=== PATIENT | male | born 1960 | race African-American/Black ===

== ENCOUNTER 2021-09-14 20:23 | Inpatient (IN) | payer OTHER ==
[~2021-09-14] VITALS: Ht 188 cm; Wt 112.0 kg
[2021-09-14 21:09] LABS: HEMATOCRIT 32.6 % (36.7-47.1); MEAN CORPUSCULAR HEMOGLOBIN 30.4 uug (23.8-33.4); MEAN CORPUSCULAR VOLUME 93.3 fL (73.0-96.2); PLATELET COUNT (AUTO) 222 K/uL (152-348)
[2021-09-14] MEDS ORDERED: POTA-194 PO (21:11)
[2021-09-14] MEDS ORDERED: METO-358 PO (21:11)
[2021-09-14] MEDS ORDERED: SERT-439 PO (21:11)
[2021-09-14] MEDS ORDERED: CEPH500T PO (21:11)
[2021-09-14] MEDS ORDERED: CYCL5TAB PO (21:11)
[2021-09-14] MEDS ORDERED: DIGO125T5 PO (21:11)
[2021-09-14] MEDS ORDERED: SPIR25TA6 PO (21:11)
[2021-09-14] MEDS ORDERED: APIX5TAB PO (21:11)
[2021-09-14] MEDS ORDERED: ROSU5TAB PO (21:11)
[2021-09-14] MEDS ORDERED: FERR325T28 PO (21:11)
[2021-09-14] MEDS ORDERED: GABA-532 PO (21:11)
[2021-09-14] MEDS ORDERED: BENA10TA74 PO (21:11)
[2021-09-14 21:20] LABS: CARBON DIOXIDE 30 mmol/L (21-32); CHLORIDE 102 mmol/L (98-107); CREATININE 0.7 mg/dL (0.6-1.3); GLUCOSE 108 mg/dL (74-106); POTASSIUM 3.5 mmol/L (3.5-5.1); UREA NITROGEN, BLOOD 16 mg/dL (7-18)
[2021-09-14] MEDS ORDERED: NITROGLYCERIN OINT 1 GM PACKET TP ONE ×2 (21:30→21:47)
[2021-09-14] MEDS ORDERED: FUROSEMIDE 40 MG/4 ML VIAL IV ONE (21:30)
[2021-09-14 21:33] LABS: ALANINE AMINOTRANSFERASE 27 U/L (16-63); ALKALINE PHOSPHATASE 118 U/L (50-136); ASPARTATE AMINOTRANSFERASE 19 U/L (15-37); BILIRUBIN,DIRECT 0.4 mg/dL (0.0-0.2); BILIRUBIN,TOTAL 0.7 mg/dL (0.2-1.0); TOTAL PROTEIN, SERUM 7.7 g/dL (6.4-8.2)
[2021-09-14] MEDS ORDERED: FUROSEMIDE 40 MG/4 ML VIAL ONE (21:47)
--- NOTE | 2021-09-14 21:50 | NUR ---
CESILIA made aware of current BP reading of 102/59. Gave the ok to administer lasix 80mg IV.
--- NOTE | 2021-09-14 22:40 | NUR ---
EPIC panel call placed. Awaiting call back from Dr. Garcia.
[2021-09-14] MEDS ORDERED: ONDANSETRON 4 MG/2 ML VIAL IV PRN (23:30)
[2021-09-14] MEDS ORDERED: MAGNESIUM HYDROXIDE 30 ML LIQUID UDC PO PRN (23:30)
[2021-09-14] MEDS ORDERED: REMEDY ESSENTIAL ZINC PASTE 113 GM TP PRN (23:30)
--- NOTE | 2021-09-15 00:30 | NUR ---
Report given to PANKAJ Davalos
[2021-09-15 02:18] LABS: *BILIRUBIN,URIN NEGATIVE (NEGATIVE); *BLOOD, URINE 3+ (NEGATIVE); *COLOR,URINE YELLOW (YELLOW); *KETONES,URINE NEGATIVE (NEGATIVE); LEUKOCYTE ESTERASE ,URINE NEGATIVE (NEGATIVE); NITRITE, URINE NEGATIVE (NEGATIVE); UGLUCOSE NEGATIVE (NEGATIVE)
--- NOTE | 2021-09-15 02:30 | NUR ---
Admitted a 60 years old male with Dx of Acute CHF. Patiently morbidly obese. AAOx4. On O2 at 3LPM via NC in place. O2 sat at 100% during admit. Midline on right upper arm intact and patent. Reinforce dressing. Salinas catheter Fr16 with 10cc balloon intact and draining via gravity. Routine admission care done. Plan of care initiated. Safety measure initiated and call light within reached.
[2021-09-15 02:46] LABS: *CLARITY,URINE HAZY (CLEAR)
[2021-09-15 02:48] LABS: BACTERIA,URINE NONE SEEN /HPF (NONE SEEN); RBC,URINE TNTC /HPF (0-3); SQUAMOUS EPITHELIAL CELL,UR NONE SEEN /HPF (NONE SEEN); WBC,URINE NONE SEEN /HPF (0-3); YEAST,URINE NONE SEEN /HPF (NONE SEEN)
--- NOTE | 2021-09-15 03:01 | NUR ---
Patient transported to TELE in stable condition.
[2021-09-15 03:18] VITALS: BP 106/83
[2021-09-15 05:46] LABS: HEMATOCRIT 33.4 % (36.7-47.1); MEAN CORPUSCULAR HEMOGLOBIN 30.3 uug (23.8-33.4); MEAN CORPUSCULAR VOLUME 93.9 fL (73.0-96.2); PLATELET COUNT (AUTO) 220 K/uL (152-348)
[2021-09-15] MEDS: PANTOPRAZOLE SODIUM 40 MG TABLET.DR PO SCH (06:06)
--- NOTE | 2021-09-15 06:14 | NUR ---
Patient slept well after admission. Denies any pain or SOB. Remains on O2 at 3LPM via NC. A fib on tele with PVC's. Salinas catheter intact and draining via gravity, with 300ml urine output. Needs assessed and attended to. Safety measure maintained and call light within reached.
--- NOTE | 2021-09-15 08:00 | NUR ---
AAWAKE ALERT AND VERBALLY RESPONSIVE, NO SS OF DISTRESS OR PAIN. REMAINS AFIB ON MONITOR
[2021-09-15 08:33] LABS: CARBON DIOXIDE 31 mmol/L (21-32); CHLORIDE 104 mmol/L (98-107); CREATININE 0.7 mg/dL (0.6-1.3); GLUCOSE 96 mg/dL (74-106); MAGNESIUM 2.1 mg/dL (1.8-2.4); PHOSPHOROUS 3.4 mg/dL (2.5-4.9); POTASSIUM 3.6 mmol/L (3.5-5.1); UREA NITROGEN, BLOOD 15 mg/dL (7-18)
[2021-09-15] MEDS ORDERED: FUROSEMIDE 40 MG/4 ML VIAL IV SCH (09:00)
[2021-09-15 09:27] LABS: THYROID STIMULATING HORMONE 1.149 mIU/mL (0.358-3.740)
[2021-09-15] MEDS: DIGOXIN 125 MCG TABLET PO SCH (09:42)
[2021-09-15] MEDS: APIXABAN 5 MG TABLET PO SCH ×2 (09:43→20:29)
--- NOTE | 2021-09-15 10:30 | NUR ---
SEEN BY DR FERGUSON FOR CARDIO FOLLOW-UP SEE NOTES
--- NOTE | 2021-09-15 10:53 | NUR ---
WOUND CARE CONSULT: PT RESTING AT THIS TIME. REVIEWED CHART, NURSING DOCUMENTATION AND PHOTOS WHICH INDICATE MOISTURE ASSOCIATED SKIN DAMAGE OVER PREVIOUS SCARRING ON SACRUM/BUTTOCKS, AND THIGHS, PRESENT ON ADMISSION. PT ALSO NOTED TO HAVE PROFOUND EDEMA TO LOWER EXTREMITIES. RECOMMENDATIONS MADE FOR SKIN PROTECTION. DISCUSSED WITH NURSING STAFF. [facility] E[facility] AIR BED IS ON ORDER. MD IN AGREEMENT WITH PLAN OF CARE.
[2021-09-15 11:29] VITALS: BP 119/80
--- NOTE | 2021-09-15 14:39 | NUR ---
NO ACUTE CHANGE FRO9M MORNING ASSESSMENT, CONTINUE WIT TELE ORDERED
[2021-09-15] MEDS ORDERED: METO100T14 PO (15:52)
[2021-09-15] MEDS ORDERED: FURO40TA5 PO (15:55)
[2021-09-15] MEDS: FUROSEMIDE 40 MG/4 ML VIAL IV SCH ×2 (16:25→23:04)
[2021-09-15 17:15] VITALS: BP 112/85
--- NOTE | 2021-09-15 19:07 | NUR ---
PATIENT REFUSED BARIATRIC BED
--- NOTE | 2021-09-15 20:00 | NUR ---
Received patient lying in bed. AAOx4. In no apparent distress. Denies any pain. Complain of mild SOB but tolerable per pt. On O2 at 3LPM via NC in place. O2 sat at 98% at this time. Midline on right upper arm intact and patent. Needs assessed and attended to. Safety measure initiated and call light within reached.
[2021-09-15 20:40] VITALS: BP 106/80
--- NOTE | 2021-09-15 21:03 | NUR ---
Controlled A. fib with PVC's on tele, HR of 100/min.
[2021-09-16 00:30] VITALS: BP 103/60
[2021-09-16 04:50] VITALS: BP 105/48
[2021-09-16] MEDS: PANTOPRAZOLE SODIUM 40 MG TABLET.DR PO SCH (06:07)
--- NOTE | 2021-09-16 06:26 | NUR ---
Patient slept well last night. Denies any pain or SOB. O2 at 3LPM via NC. Controlled A. fib with PVC's on tele with HR of 97/min. Salinas catheter intact and draining via gravity. Needs attended to and met. Safety measure maintained and call light within reached.
[2021-09-16 06:48] LABS: HEMATOCRIT 30.5 % (36.7-47.1); MEAN CORPUSCULAR HEMOGLOBIN 30.6 uug (23.8-33.4); MEAN CORPUSCULAR VOLUME 94.3 fL (73.0-96.2); PLATELET COUNT (AUTO) 213 K/uL (152-348)
[2021-09-16 07:20] LABS: CARBON DIOXIDE 35 mmol/L (21-32); CHLORIDE 102 mmol/L (98-107); CREATININE 0.7 mg/dL (0.6-1.3); GLUCOSE 96 mg/dL (74-106); MAGNESIUM 1.9 mg/dL (1.8-2.4); PHOSPHOROUS 3.1 mg/dL (2.5-4.9); POTASSIUM 3.1 mmol/L (3.5-5.1); UREA NITROGEN, BLOOD 17 mg/dL (7-18)
--- NOTE | 2021-09-16 08:00 | NUR ---
AWAKE ALERT AND ORIENTED X3 WITH O2 AT 3L NC SATURATING 95% DENIES PAIN/DISTRESS. AFIB ON MONITOR CONTINUE TELE OBSERVATION ORDERED
[2021-09-16] MEDS ORDERED: POTASSIUM CHLORIDE 20 MEQ POWDER PACKET GT ONE (08:15)
[2021-09-16] MEDS: DIGOXIN 125 MCG TABLET PO SCH (08:48)
[2021-09-16] MEDS: MAGNESIUM SULFATE/D5W 100 ML IV SCH ×2 (08:48→09:39)
[2021-09-16] MEDS: FUROSEMIDE 40 MG/4 ML VIAL IV SCH ×3 (08:48→23:34)
[2021-09-16] MEDS: APIXABAN 5 MG TABLET PO SCH ×2 (08:49→20:23)
[2021-09-16] MEDS: POTASSIUM CHLORIDE 50 ML IV SCH ×4 (10:32→14:54)
--- NOTE | 2021-09-16 11:00 | NUR ---
SEEN BY DR WHITE AND DR FERGUSON, REVIEWED LABS AND REPLACED K & MG. DENIES PAIN BUT SLIGHT SOB ON EXERTION. CONTROLLED AFIB ON MONITOR
[2021-09-16 11:12] VITALS: BP 131/98
--- NOTE | 2021-09-16 14:20 | NUR ---
TOLERATING POTASSIUM IV VERY WELL FOR REPLACEMENT. REMAINS AFIB ON MONITOR CONTROLLED/UNCONTROLLED. DENIES SOB AND CHEST PAIN
[2021-09-16 15:58] VITALS: BP 107/86
--- NOTE | 2021-09-16 19:45 | NUR ---
Received patient lying in bed watching TV. AAOx4. Able to make needs known. On 3L O2 via NC, saturating at 93%, increased to 4L O2, saturating well. A-fib on telemonitor. WARREN midline patent and intact. Patient denies SOB, chest pain or dizziness. Requesting for liquids, taught patient importance of strict intake and output d/t his current condition. Safety precautions initiated. Bed in locked position, bed alarm activated, call light button within reach. Will continue to monitor.
[2021-09-16] MEDS: ACETAMINOPHEN 325 MG TABLET PO PRN (20:22)
[2021-09-16 20:29] VITALS: BP 114/79
[2021-09-17 04:00] VITALS: BP 108/57
[2021-09-17] MEDS: PANTOPRAZOLE SODIUM 40 MG TABLET.DR PO SCH (06:00)
--- NOTE | 2021-09-17 06:06 | NUR ---
Patient slept through the night. No acute distress noted at this time. Controlled A-fib on tele monitor. 1L O2 via NC, saturating at 97%. IV access on WARREN midline, patent and intact. Salinas cath, draining enio colored urine. Compliant with medications. Safety precautions maintained. Will endorse to day shift.
[2021-09-17 06:39] LABS: HEMATOCRIT 31.8 % (36.7-47.1); MEAN CORPUSCULAR HEMOGLOBIN 30.1 uug (23.8-33.4); PLATELET COUNT (AUTO) 214 K/uL (152-348)
[2021-09-17 07:12] LABS: CARBON DIOXIDE 34 mmol/L (21-32); CHLORIDE 103 mmol/L (98-107); CREATININE 0.6 mg/dL (0.6-1.3); GLUCOSE 90 mg/dL (74-106); MAGNESIUM 2.1 mg/dL (1.8-2.4); POTASSIUM 3.2 mmol/L (3.5-5.1); UREA NITROGEN, BLOOD 14 mg/dL (7-18)
--- NOTE | 2021-09-17 07:30 | NUR ---
Received patient in bed awake alert and oriented times 4. No sign of distress noted at this time. Patient is currently on 1 L of oxygen NC. Safety precautions are in place. Will continue to monitor.
[2021-09-17] MEDS ORDERED: POTASSIUM CHLORIDE 20 MEQ POWDER PACKET PO ONE ×2 (08:30→17:00)
[2021-09-17] MEDS: SPIRONOLACTONE 25 MG TABLET PO SCH (08:53)
[2021-09-17] MEDS: POTASSIUM CHLORIDE 50 ML IV SCH ×4 (08:53→14:45)
[2021-09-17] MEDS: DIGOXIN 125 MCG TABLET PO SCH (08:53)
[2021-09-17] MEDS: APIXABAN 5 MG TABLET PO SCH ×2 (08:53→20:57)
[2021-09-17 15:42] VITALS: BP 161/84
[2021-09-17] MEDS: FUROSEMIDE 40 MG/4 ML VIAL IV SCH ×2 (16:32→23:40)
--- NOTE | 2021-09-17 18:26 | NUR ---
Patient left resting in bed. No sign of distress noted. All medication given as ordered. Fluid restrictions are in place. Safety measure implemented. Will endorse care to the oncoming nurse.
--- NOTE | 2021-09-17 20:00 | NUR ---
Patient in bed, with HOB up. AAO x4, able to make needs known. On 1L 02 via NC, still noted with exertional SOB, no coughing. Patient is MAX 2 person assist, noted with some left sided weakness when assisted with hygiene. Right upper arm midline in place, patent and intact. +4 pitting edema noted to both legs, from top of thighs down to feet. On telemetry, AFIB, at 110-120's BPM. Safety measures initiated, call light within reach.
--- NOTE | 2021-09-18 | NUR ---
RECD PT IN BED, HOB UP AND QUIETLY RESTING. NO ACUTE DISTRESS NOTED, NEEDS ATTENDED TO,ALERT/ORIENTED X4, NO VOICED COMPLAINTS.ON TELE AFIB,HR 97.FAM CATH INTACT AND PATENT.
[2021-09-18 00:26] VITALS: BP 130/99
[2021-09-18 04:00] VITALS: BP 131/80
--- NOTE | 2021-09-18 06:02 | NUR ---
Patient still noted with SOB, on 1L 02 via NC, 02 sats 94%. On telemetry, remains in AFIB at 118BPM at this time. Patient requesting many fluids this shift, Urine output is good, clear yellow urine noted to muniz catheter. No significant events noted. Dressing intact to sacral MASD. 2 person MAX assist provided for ADL's and hygiene. Call light within reach.
[2021-09-18] MEDS: PANTOPRAZOLE SODIUM 40 MG TABLET.DR PO SCH (06:20)
[2021-09-18 06:50] LABS: HEMATOCRIT 31.6 % (36.7-47.1); MEAN CORPUSCULAR HEMOGLOBIN 30.7 uug (23.8-33.4); MEAN CORPUSCULAR VOLUME 92.9 fL (73.0-96.2); PLATELET COUNT (AUTO) 230 K/uL (152-348)
[2021-09-18 07:27] LABS: CARBON DIOXIDE 32 mmol/L (21-32); CHLORIDE 102 mmol/L (98-107); CREATININE 0.7 mg/dL (0.6-1.3); GLUCOSE 96 mg/dL (74-106); MAGNESIUM 2.2 mg/dL (1.8-2.4); PHOSPHOROUS 2.7 mg/dL (2.5-4.9); POTASSIUM 3.4 mmol/L (3.5-5.1); UREA NITROGEN, BLOOD 11 mg/dL (7-18)
[2021-09-18] MEDS ORDERED: POTASSIUM CHLORIDE 20 MEQ POWDER PACKET PO ONE (09:00)
[2021-09-18] MEDS: FUROSEMIDE 40 MG/4 ML VIAL IV SCH ×2 (09:03→16:53)
[2021-09-18] MEDS: DIGOXIN 125 MCG TABLET PO SCH (09:05)
[2021-09-18] MEDS: SPIRONOLACTONE 25 MG TABLET PO SCH (09:06)
[2021-09-18] MEDS: POTASSIUM CHLORIDE 50 ML IV SCH ×4 (09:06→13:34)
[2021-09-18] MEDS: APIXABAN 5 MG TABLET PO SCH ×2 (09:08→21:53)
[2021-09-18] MEDS: LOSARTAN POTASSIUM 25 MG TABLET PO SCH (09:13)
[2021-09-18 11:59] VITALS: BP 123/84
--- NOTE | 2021-09-18 15:56 | NUR ---
Pt is a/o x 4 presenting with atrial fibrillation on telemetry HR 112, on 1L NC saturating 97%. pt has had 4 bags of potassium chloride, he is on strict intake and output. pt verbalizes understanding of limiting fluid intake. he has had 2,550 cc urine output thus far. Pt continues to have shortness of breath. Head of bed elevate, comfort measures provided, call light within reach. Will continue to monitor.
[2021-09-18 16:07] VITALS: BP 122/76
[2021-09-18 20:19] VITALS: BP 118/79
--- NOTE | 2021-09-19 | NUR ---
HS CARE DONE,REPOSITIONED FOR COMFORT,OXYGEN INHALATION 1L/MIN VIA NASAL CANNULA.STRICT INTAKE AND OUTPUT MEASURED AND RECORDED.SLEPT AT LONG INTERVALS.
[2021-09-19 00:10] VITALS: BP 130/79
[2021-09-19 04:30] VITALS: BP 123/63
[2021-09-19 05:43] LABS: HEMATOCRIT 31.9 % (36.7-47.1); MEAN CORPUSCULAR HEMOGLOBIN 30.4 uug (23.8-33.4); MEAN CORPUSCULAR VOLUME 92.8 fL (73.0-96.2); PLATELET COUNT (AUTO) 224 K/uL (152-348)
[2021-09-19 05:55] LABS: CARBON DIOXIDE 31 mmol/L (21-32); CHLORIDE 102 mmol/L (98-107); CREATININE 0.7 mg/dL (0.6-1.3); GLUCOSE 96 mg/dL (74-106); MAGNESIUM 2.2 mg/dL (1.8-2.4); PHOSPHOROUS 3.1 mg/dL (2.5-4.9); POTASSIUM 3.4 mmol/L (3.5-5.1); UREA NITROGEN, BLOOD 11 mg/dL (7-18)
[2021-09-19] MEDS: PANTOPRAZOLE SODIUM 40 MG TABLET.DR PO SCH (06:30)
[2021-09-19] MEDS: FUROSEMIDE 40 MG/4 ML VIAL IV SCH ×3 (07:31→16:28)
--- NOTE | 2021-09-19 07:33 | NUR ---
ENDORSED TO AM NURSE IN APPARENTLY FAIR CONDITION,INSTRUCED ON THE IMPORTANCE OF DIURETICS IN RELATION TO HIS ILLNESS.BED BREAK NOT WORKING, WOUL BENEFIT USING BARIATRIC BED, MEPILEX ON SACRACRAL SORE IN PLACE AND INTACT.
--- NOTE | 2021-09-19 08:00 | NUR ---
Discuss plan with [employer]OR [employer] and patient re not drinking too much water. pt agreeable with plan of care. strict I/O.
[2021-09-19] MEDS ORDERED: POTASSIUM CHLORIDE 20 MEQ POWDER PACKET PO ONE (08:30)
[2021-09-19] MEDS: APIXABAN 5 MG TABLET PO SCH ×2 (10:06→20:19)
[2021-09-19] MEDS: SPIRONOLACTONE 25 MG TABLET PO SCH (10:06)
[2021-09-19] MEDS: DIGOXIN 125 MCG TABLET PO SCH (10:10)
[2021-09-19] MEDS: LOSARTAN POTASSIUM 25 MG TABLET PO SCH (10:10)
[2021-09-19] MEDS: POTASSIUM CHLORIDE 50 ML IV SCH ×2 (10:16→13:00)
[2021-09-19 12:20] VITALS: BP 113/63
[2021-09-19 16:03] VITALS: BP 110/89
[2021-09-19 20:18] VITALS: BP 118/78
--- NOTE | 2021-09-19 20:35 | NUR ---
Received patient lying in bed watching TV. AAOx4. Able to make needs known. On 1L O2 via NC, saturating at 94%. Head of bed elevated. Controlled A-fib on telemonitor. WARREN midline patent and intact. Patient denies SOB, chest pain or dizziness. Continuously requesting for liquids, taught patient importance of strict intake and output d/t his current condition. Safety precautions initiated. Bed in locked position, bed alarm activated, call light button within reach. Will continue to monitor.
[2021-09-20] MEDS: FUROSEMIDE 40 MG/4 ML VIAL IV SCH ×4 (00:13→23:46)
[2021-09-20 00:21] VITALS: BP 136/72
[2021-09-20 04:21] VITALS: BP 107/65
--- NOTE | 2021-09-20 05:18 | NUR ---
Patient slept intermittently through the night. Patient denies SOB, chest pain or dizziness. Controlled A-fib on tele monitor. On 1L O2, saturating at 96%. IV access patent and intact. With muniz catheter, intact, draining clear yellow urine. Wound care done. Repositioned pt frequently. Compliant with medication regimen. All needs attended to and met. Safety precautions maintained. Will endorse to day shift.
[2021-09-20] MEDS: PANTOPRAZOLE SODIUM 40 MG TABLET.DR PO SCH (06:19)
[2021-09-20 06:52] LABS: HEMATOCRIT 31.6 % (36.7-47.1); MEAN CORPUSCULAR HEMOGLOBIN 30.3 uug (23.8-33.4); MEAN CORPUSCULAR VOLUME 93.1 fL (73.0-96.2); PLATELET COUNT (AUTO) 249 K/uL (152-348)
[2021-09-20 07:11] LABS: CARBON DIOXIDE 30 mmol/L (21-32); CHLORIDE 101 mmol/L (98-107); CREATININE 0.6 mg/dL (0.6-1.3); GLUCOSE 97 mg/dL (74-106); MAGNESIUM 1.9 mg/dL (1.8-2.4); PHOSPHOROUS 2.8 mg/dL (2.5-4.9); POTASSIUM 3.1 mmol/L (3.5-5.1); UREA NITROGEN, BLOOD 9 mg/dL (7-18)
--- NOTE | 2021-09-20 08:00 | NUR ---
Discussed with patient fluid restrictions and not to drink too much water as pt is being diurese with lasix. Pt agreeable with plan and agrees to only have ice chips. JOSELIN LE+ 2. F/c draining light yellow urine with sediments. Pt agreeable with using the bariatric bed. Frequent turn q2 hrs implemented. PT denies any c/o pain.
[2021-09-20] MEDS ORDERED: POTASSIUM CHLORIDE 20 MEQ TAB.PRT.SR PO ONE (09:00)
[2021-09-20] MEDS ORDERED: POTASSIUM CHLORIDE 20 MEQ POWDER PACKET GT ONE (09:00)
[2021-09-20] MEDS: POTASSIUM CHLORIDE 50 ML IV SCH ×4 (09:36→15:06)
[2021-09-20] MEDS: SPIRONOLACTONE 25 MG TABLET PO SCH (09:37)
[2021-09-20] MEDS: APIXABAN 5 MG TABLET PO SCH ×2 (09:39→21:28)
[2021-09-20] MEDS: DIGOXIN 125 MCG TABLET PO SCH (09:39)
[2021-09-20] MEDS: LOSARTAN POTASSIUM 25 MG TABLET PO SCH (09:40)
[2021-09-20 12:00] VITALS: BP 108/65
[2021-09-20 16:00] VITALS: BP 103/69
--- NOTE | 2021-09-20 18:13 | NUR ---
PT is in no acute distress. Call light is within reach.
[2021-09-20 20:00] VITALS: BP 113/47
--- NOTE | 2021-09-20 20:00 | NUR ---
Received patient lying in bed. AAOX4. In no apparent distress. On O2 at 1LPM via NC. Denies any pain. A.fib controlled on tele with HR of 92/min. Midline on right upper arm intact and patent. Salinas catheter intact and draining via gravity. Needs assessed and attended to. Safety measure initiated and call light within reached.
[2021-09-20] MEDS ORDERED: Medication Not On Formulary EA (Rosuvastatin Calcium (Crestor) 5 MG) PO SCH (21:00)
[2021-09-20] MEDS ORDERED: METOPROLOL TARTRATE 50 MG TABLET PO SCH (21:00)
[2021-09-20] MEDS ORDERED: Medication Not On Formulary EA (Cyclobenzaprine Hcl 5 MG) PO SCH (21:00)
[2021-09-20] MEDS: ATORVASTATIN 10 MG TABLET PO SCH (21:28)
[2021-09-20] MEDS: CYCLOBENZAPRINE HCL 10 MG TABLET PO SCH (21:28)
[2021-09-20] MEDS: SERTRALINE HCL 50 MG TABLET PO SCH (21:28)
--- NOTE | 2021-09-20 22:00 | NUR ---
Patient transferred to [facility].
[2021-09-21] VITALS: BP 107/57
[2021-09-21 05:13] VITALS: BP 98/60
[2021-09-21] MEDS: PANTOPRAZOLE SODIUM 40 MG TABLET.DR PO SCH (06:08)
--- NOTE | 2021-09-21 06:10 | NUR ---
Patient slept well last night. Denies any pain or SOB. O2 at 1LPM via NC. Controlled A. fib controlled on tele with HR of 77/min. Salinas catheter intact and draining via gravity. Needs attended to and met. Safety measure maintained and call light within reached.
[2021-09-21] MEDS ORDERED: BENAZEPRIL HCL 10 MG TABLET PO SCH (09:00)
[2021-09-21] MEDS ORDERED: APIXABAN 5 MG TABLET PO SCH (09:00)
[2021-09-21] MEDS ORDERED: METOPROLOL TARTRATE 50 MG TABLET PO SCH (09:00)
[2021-09-21] MEDS ORDERED: METOPROLOL SUCCINATE XL 25 MG TAB.SR.24H PO SCH (09:00)
[2021-09-21] MEDS ORDERED: Medication Not On Formulary EA (Metoprolol Tartrate (Lopressor) 100 MG) PO SCH (09:00)
[2021-09-21] MEDS ORDERED: DIGOXIN 125 MCG TABLET PO SCH (09:00)
[2021-09-21] MEDS ORDERED: BUMETANIDE 1 MG TABLET PO SCH (09:00)
[2021-09-21] MEDS ORDERED: BENAZEPRIL HCL 20 MG TABLET PO SCH (09:00)
[2021-09-21] MEDS: APIXABAN 5 MG TABLET PO SCH ×2 (09:41→20:48)
[2021-09-21] MEDS: GABAPENTIN 100 MG CAPSULE PO SCH ×3 (09:42→16:52)
[2021-09-21] MEDS: DIGOXIN 125 MCG TABLET PO SCH (09:47)
[2021-09-21] MEDS: FERROUS SULFATE 325 MG TABEC PO SCH (09:48)
[2021-09-21] MEDS: SPIRONOLACTONE 25 MG TABLET PO SCH (09:48)
[2021-09-21] MEDS: BUMETANIDE 1 MG TABLET PO SCH (09:54)
[2021-09-21] MEDS: METOPROLOL TARTRATE 25 MG TABLET PO SCH ×2 (09:54→20:49)
[2021-09-21 12:00] VITALS: BP 111/48
--- NOTE | 2021-09-21 15:10 | NUR ---
Received patient awake in his room. A/O X 3 to person, place. Pt. is calm and cooperative with care. Pt. is on 1 liter oxygen with saturation between 96% to 99%. Patient is incontinent with muniz catheter. Requires more than minimal assistance with ADL. Compliant with medications. Fall and safety precautions implemented.
[2021-09-21 16:00] VITALS: BP 100/41
[2021-09-21 20:40] VITALS: BP 97/64
[2021-09-21] MEDS: CYCLOBENZAPRINE HCL 10 MG TABLET PO SCH (20:48)
[2021-09-21] MEDS: ATORVASTATIN 10 MG TABLET PO SCH (20:48)
[2021-09-21] MEDS: SERTRALINE HCL 50 MG TABLET PO SCH (20:48)
[2021-09-22 00:25] VITALS: BP 99/47
[2021-09-22 04:22] VITALS: BP 94/43
[2021-09-22] MEDS: PANTOPRAZOLE SODIUM 40 MG TABLET.DR PO SCH (06:10)
[2021-09-22 06:27] LABS: HEMATOCRIT 30.2 % (36.7-47.1); MEAN CORPUSCULAR HEMOGLOBIN 30.9 uug (23.8-33.4); MEAN CORPUSCULAR VOLUME 94.2 fL (73.0-96.2); PLATELET COUNT (AUTO) 259 K/uL (152-348)
[2021-09-22 06:51] LABS: ALANINE AMINOTRANSFERASE 18 U/L (16-63); ALKALINE PHOSPHATASE 106 U/L (50-136); ASPARTATE AMINOTRANSFERASE 10 U/L (15-37); BILIRUBIN,TOTAL 0.5 mg/dL (0.2-1.0); CARBON DIOXIDE 31 mmol/L (21-32); CHLORIDE 103 mmol/L (98-107); CHOLESTEROL 105 mg/dL (<200); CREATININE 0.7 mg/dL (0.6-1.3); GLUCOSE 96 mg/dL (74-106); HDL CHOLESTEROL 29 mg/dL (40-60); MAGNESIUM 1.9 mg/dL (1.8-2.4); PHOSPHOROUS 3.7 mg/dL (2.5-4.9); POTASSIUM 3.4 mmol/L (3.5-5.1); TRIGLYCERIDES 70 MG/DL (30-150); UREA NITROGEN, BLOOD 10 mg/dL (7-18)
[2021-09-22] MEDS ORDERED: POTASSIUM CHLORIDE 20 MEQ TAB.PRT.SR PO ONE (09:15)
[2021-09-22] MEDS: FERROUS SULFATE 325 MG TABEC PO SCH (09:16)
[2021-09-22] MEDS: BUMETANIDE 1 MG TABLET PO SCH (09:16)
[2021-09-22] MEDS: GABAPENTIN 100 MG CAPSULE PO SCH ×3 (09:16→16:56)
[2021-09-22] MEDS: SPIRONOLACTONE 25 MG TABLET PO SCH (09:16)
[2021-09-22] MEDS: APIXABAN 5 MG TABLET PO SCH ×2 (09:17→20:11)
[2021-09-22] MEDS: DIGOXIN 125 MCG TABLET PO SCH (09:18)
--- NOTE | 2021-09-22 09:24 | NUR ---
rhett held bp 92/47
[2021-09-22 12:00] VITALS: BP 92/55
--- NOTE | 2021-09-22 12:16 | NUR ---
received call from osvaldo who was very upset and raising her voice, per " i am frustrated, i need to talk to someone her facility never told me he was with you guys." Per osvaldo i need to talk to the doctor, message was sent to Dr. Talavera per MD he will call .
[2021-09-22 16:00] VITALS: BP 100/73
--- NOTE | 2021-09-22 19:40 | NUR ---
Received pt lying in bed, watching tv. AO x 4. On 1L NC saturating at 96%. On MAXXAIR mattress. WARREN midline intact and patent. Pt requested crackers, gave crackers. Educated pt on strict I & O. Will continue to monitor I & O. No signs of acute distress. Call lights within reach. Safety measures initiated.
[2021-09-22] MEDS: CYCLOBENZAPRINE HCL 10 MG TABLET PO SCH (20:10)
[2021-09-22] MEDS: ATORVASTATIN 10 MG TABLET PO SCH (20:11)
[2021-09-22] MEDS: SERTRALINE HCL 50 MG TABLET PO SCH (20:12)
[2021-09-22 20:22] VITALS: BP 110/66
[2021-09-23] VITALS: BP 106/54
[2021-09-23 04:00] VITALS: BP 135/42
[2021-09-23] MEDS: PANTOPRAZOLE SODIUM 40 MG TABLET.DR PO SCH (06:23)
--- NOTE | 2021-09-23 06:38 | NUR ---
Patient slept through the night. On 1L NC saturating 98%. WARREN midline intact. Controlled A fib on tele monitor, HR 95-115 bpm. No signs of acute distress. Strict I&O. F/C intact draining, enio tea colored urine. Bilateral lower extremities kept offloading. Dry skin, skin intact and moisturized. No complaints at this time. Compliant with medications. Safety measures maintained. Call lights within reach. Will endorse to am shift.
[2021-09-23] MEDS: BUMETANIDE 1 MG TABLET PO SCH (08:05)
[2021-09-23] MEDS: FERROUS SULFATE 325 MG TABEC PO SCH (08:05)
[2021-09-23] MEDS: SPIRONOLACTONE 25 MG TABLET PO SCH (08:06)
[2021-09-23] MEDS: APIXABAN 5 MG TABLET PO SCH ×2 (08:06→20:07)
[2021-09-23] MEDS: DIGOXIN 125 MCG TABLET PO SCH (08:06)
[2021-09-23] MEDS: GABAPENTIN 100 MG CAPSULE PO SCH ×3 (08:07→17:06)
[2021-09-23 11:07] VITALS: BP 103/50
[2021-09-23 15:08] VITALS: BP 98/53
--- NOTE | 2021-09-23 19:30 | NUR ---
Received pt lying in MAXXAIR mattress. On 1L NC saturating at 97%. AO X 4. Very pleasant, able to make needs known. WARREN midline intact and patent. F/C intact. No signs of acute distress noted. No complaints at this time. Strict I & O. Call lights within reach. Belongs by bedside. Safety measures initiated.
[2021-09-23 20:00] VITALS: BP 106/61
[2021-09-23] MEDS: SERTRALINE HCL 50 MG TABLET PO SCH (20:01)
[2021-09-23] MEDS: ATORVASTATIN 10 MG TABLET PO SCH (20:01)
[2021-09-23] MEDS: CYCLOBENZAPRINE HCL 10 MG TABLET PO SCH (20:02)
[2021-09-24] VITALS: BP 112/58
[2021-09-24 04:00] VITALS: BP 108/75
--- NOTE | 2021-09-24 05:52 | NUR ---
Pt slept comfortably through the night. On 1L NC saturating at 97%. Compliant with medication and care. WARREN midline intact. F/C intact and patent. All needs have been met. No signs of acute distress or complaints. Call lights within reach. Safety measures maintained. Will endorse to am shift
[2021-09-24 06:36] LABS: HEMATOCRIT 30.4 % (36.7-47.1); MEAN CORPUSCULAR HEMOGLOBIN 30.3 uug (23.8-33.4); MEAN CORPUSCULAR VOLUME 92.1 fL (73.0-96.2); PLATELET COUNT (AUTO) 249 K/uL (152-348)
[2021-09-24] MEDS: PANTOPRAZOLE SODIUM 40 MG TABLET.DR PO SCH (06:36)
[2021-09-24 07:05] LABS: CREATININE 0.8 mg/dL (0.6-1.3); MAGNESIUM 1.8 mg/dL (1.8-2.4); PHOSPHOROUS 3.3 mg/dL (2.5-4.9); POTASSIUM 3.3 mmol/L (3.5-5.1)
--- NOTE | 2021-09-24 08:00 | NUR ---
RECEIVED PATIENT IN BED AWAKE ALERT AND ORIENTED X3 . ON 1L ON NC SATURATING 96% no ss of distress. dr childers in AND CHANGE STATUS TO MED/SURG. LOW K 3.3 REPLACED
[2021-09-24] MEDS: BUMETANIDE 1 MG TABLET PO SCH (08:52)
[2021-09-24] MEDS: DIGOXIN 125 MCG TABLET PO SCH (08:53)
[2021-09-24] MEDS: ACETAMINOPHEN 325 MG TABLET PO PRN (08:54)
[2021-09-24] MEDS: APIXABAN 5 MG TABLET PO SCH (08:54)
[2021-09-24] MEDS: FERROUS SULFATE 325 MG TABEC PO SCH (08:54)
[2021-09-24] MEDS: GABAPENTIN 100 MG CAPSULE PO SCH ×2 (08:54→13:20)
[2021-09-24] MEDS: SPIRONOLACTONE 25 MG TABLET PO SCH (08:54)
[2021-09-24] MEDS ORDERED: POTASSIUM CHLORIDE 20 MEQ POWDER PACKET PO ONE (09:30)
[2021-09-24] MEDS ORDERED: SPIRONOLACTONE 25 MG TABLET PO SCH (09:30)
[2021-09-24 11:59] VITALS: BP 124/73
[2021-09-24] MEDS ORDERED: ACET325T53 PO (16:29)
[2021-09-24] MEDS ORDERED: POTA20PA40 PO (16:29)
[2021-09-24] MEDS ORDERED: METO25TA6 PO (16:29)
[2021-09-24] MEDS ORDERED: MULT-594 PO (16:29)
[2021-09-24] MEDS ORDERED: APIX5TAB PO (16:29)
[2021-09-24] MEDS ORDERED: MAGN400O6 PO (16:29)
[2021-09-24] MEDS ORDERED: BUME1TAB8 PO (16:29)
--- NOTE | 2021-09-24 17:09 | NUR ---
transferred to [facility]. report given to nurse. meds faxed over. in no acute distress vss sat 97% on 1l
== END 2021-09-24 15:20 | DRG 194 ==
LOC: ER 20:27 → TELE3 23:59 → MEDSURG3 09-24 08:50
PROVIDERS: ADMIT Student in an Organized Health Care Education/Training Program; ATTEND Internal Medicine
DX: I11.0 Hypertensive heart disease with heart failure (principal); J96.01 Acute respiratory failure with hypoxia; E44.0 Moderate protein-calorie malnutrition; I27.20 Pulmonary hypertension, unspecified; D68.59 Other primary thrombophilia; I31.3 Pericardial effusion (noninflammatory); I48.20 Chronic atrial fibrillation, unspecified; D64.9 Anemia, unspecified; E66.01 Morbid (severe) obesity due to excess calories; Z79.01 Long term (current) use of anticoagulants; E66.9 Obesity, unspecified; E87.6 Hypokalemia; E78.5 Hyperlipidemia, unspecified; Z86.73 Personal history of transient ischemic attack (TIA), and cerebral infarction without residual deficits; I07.1 Rheumatic tricuspid insufficiency; Z74.09 Other reduced mobility; I50.23 Acute on chronic systolic (congestive) heart failure; I42.0 Dilated cardiomyopathy; Z74.01 Bed confinement status; Z68.31 Body mass index [BMI] 31.0-31.9, adult; Z20.822 Contact with and (suspected) exposure to COVID-19
CPT/HCPCS: 36415; 51702; 70030-TC; 71045; 83735; 84100; 84443; 85025; 85730; 93005; 93307; 97161; 97535-GO-CO; A4663; A6209; G0378; J1940; J3475; J3480; J7040; J7050